=== PATIENT | female | born 1990 | race Caucasian/White ===

== ENCOUNTER 2017-01-29 13:48 | Emergency (ER) | payer MEDICAID, OTHER ==
[~2017-01-29] VITALS: Ht 175.3 cm; Wt 86.2 kg
[2017-01-29 13:52] VITALS: BP 105/73
--- NOTE | 2017-01-29 13:59 | NUR ---
Patient ambulated to bed 6. RN evaluating patient at bedside.
--- NOTE | 2017-01-29 14:00 | NUR ---
26 YO FEMALE BIB S.O. WITH C/O LEFT SIDED 8/10 "SHARP" LOWER BACK PAIN THAT "AT TIMES" RADIATES DOWN TO LT OR/AND RT LEG; PT DENIES ANY RECENT FALL OR INJURY; PT DENIES ANY NUMBNESS OR TINGLING; CMS AND SKIN INTACT; SKIN IS PINK/WARM/DRY; AOX4 WITH EVEN AND STEADY GAIT; RR ARE EVEN AND UNLABORED; VSS; PATIENT POSITIONED FOR COMFORT; HOB ELEVATED; ER MD MADE AWARE OF PT STATUS.
--- NOTE | 2017-01-29 14:15 | NUR ---
Dr. Mensah evaluating patient at bedside.
[2017-01-29] MEDS ORDERED: KETOROLAC 60 MG/2 ML VIAL IM ONE (14:25)
--- NOTE | 2017-01-29 14:41 | NUR ---
Patient taken to CT scan via wheelchair by tech. Accompanied by family.
[2017-01-29 15:00] LABS: APPEARANCE,URINE HAZY (CLEAR); BILIRUBIN,URINE NEGATIVE (NEGATIVE); BLOOD, URINE NEGATIVE (NEGATIVE); COLOR,URINE YELLOW (YELLOW); LEUKOCYTE ESTERASE ,URINE 2+ (NEGATIVE); NITRITE, URINE NEGATIVE (NEGATIVE); PH,URINE 6.5 (5.0-9.0); UGLUCOSE NEGATIVE (NEGATIVE)
[2017-01-29 15:07] LABS: RBC,URINE 0-5 (RARE) /HPF (0-5); WBC,URINE 20-60 /HPF (0-5)
[2017-01-29] MEDS ORDERED: HYDROmorphone PFS 2 MG/ML SYR IM ONE (15:35)
--- NOTE | 2017-01-29 15:45 | NUR ---
Dr. Mensah re-evaluating patient at bedside.
[2017-01-29 16:05] VITALS: BP 101/70
--- NOTE | 2017-01-29 16:05 | NUR ---
Patient discharged with v/s stable. Written and verbal after care instructions given and explained. Patient alert, oriented and verbalized understanding of instructions. Ambulatory with steady gait with . Patient stated her was going to drive her home. All questions addressed prior to discharge. ID band removed. Patient advised to follow up with PMD. Rx of Voltarn given. Patient educated on indication of medication including possible reaction and side effects. Opportunity to ask questions provided and answered.
== END 2017-01-29 16:05 | disposition home or self-care (01) ==
LOC: MED 13:48
DX: M54.5 Low back pain (principal)
CPT/HCPCS: 72131; 81001; 81025; 87086; 96372; 99285; J1170; J1885

== ENCOUNTER 2017-06-02 15:01 | Emergency (ER) | payer OTHER ==
[~2017-06-02] VITALS: Ht 175.3 cm; Wt 93.6 kg
[2017-06-02 15:20] VITALS: BP 117/78
--- NOTE | 2017-06-02 15:24 | NUR ---
PT AMBULATED TO BED 11.
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
[2017-06-02] MEDS ORDERED: ACETAMINOPHEN EXTRA STRENGTH 500 MG TAB PO ONE (15:30)
[2017-06-02 17:03] VITALS: BP 105/61
== END 2017-06-02 17:04 | disposition home or self-care (01) ==
LOC: MED 15:01
DX: O99.511 Diseases of the respiratory system complicating pregnancy, first trimester (principal); O23.41 Unspecified infection of urinary tract in pregnancy, first trimester; Z3A.09 9 weeks gestation of pregnancy
CPT/HCPCS: 36415; 87804; 99284

== ENCOUNTER 2017-12-23 00:24 | Inpatient (IN) | payer OTHER ==
[~2017-12-23] VITALS: Ht 175.3 cm; Wt 98.0 kg
[2017-12-23 00:37] VITALS: BP 113/68
[2017-12-23 01:02] LABS: HEMATOCRIT 33.7 % (36-48); HEMOGLOBIN 11.2 g/dL (12.0-16.0)
[2017-12-23 01:15] LABS: APPEARANCE,URINE SL CLOUDY (CLEAR); BILIRUBIN,URINE NEGATIVE (NEGATIVE); BLOOD, URINE NEGATIVE (NEGATIVE); COLOR,URINE YELLOW (YELLOW); LEUKOCYTE ESTERASE ,URINE 3+ (NEGATIVE); NITRITE, URINE NEGATIVE (NEGATIVE); PH,URINE 6.5 (5.0-9.0); UGLUCOSE NEGATIVE (NEGATIVE)
[2017-12-23 01:19] LABS: BASOPHILS % (AUTO) 0.5 % (0.0-2.0); EOSINOPHILS # (AUTO) 0.1 K/uL (0-0.4); EOSINOPHILS % (AUTO) 1.1 % (0.0-4.0); LYMPHOCYTES # (AUTO) 2.9 K/uL (2.5-16.5); LYMPHOCYTES % (AUTO) 30.1 % (20.5-51.1); MEAN CORPUSCULAR HEMOGLOBIN 27 pg (27-31); MEAN CORPUSCULAR HGB CONC 33 g/dL (33-37); MEAN CORPUSCULAR VOLUME 81.1 fL (80-94); MONOCYTES # (AUTO) 0.7 K/uL (0.8-1.0); MONOCYTES % (AUTO) 7.3 % (1.7-9.3); NEUTROPHILS # (AUTO) 5.8 K/uL (1.8-7.7); PLATELET COUNT (AUTO) 174 K/uL (140-450); RED BLOOD CELL COUNT(AUTO) 4.15 MIL/uL (4.20-5.40); WHITE BLOOD COUNT (AUTO) 9.6 K/uL (4.8-10.8)
[2017-12-23] MEDS ORDERED: NALBUPHINE 10 MG/ML AMP IVP PRN (01:40)
[2017-12-23] MEDS ORDERED: CARBOPROST 250 MCG/ML AMP IM PRN (01:40)
[2017-12-23] MEDS ORDERED: OXYTOCIN 20 UNITS in LACTATED RINGERS 1,000 ML IV SCH (01:40)
[2017-12-23] MEDS ORDERED: METHYLERGONOVINE 0.2 MG/ML AMP IM PRN (01:40)
[2017-12-23] MEDS ORDERED: AMPICILLIN 2,000 MG in NACL 0.9% 100 ML IV ONE (01:40)
[2017-12-23] MEDS ORDERED: OXYTOCIN 10 UNITS/ML VIAL IM PRN (01:40)
[2017-12-23] MEDS ORDERED: PROMETHAZINE 25 MG/ML VIAL IVP PRN (01:40)
[2017-12-23 01:51] LABS: RBC,URINE 0-5 (RARE) /HPF (0-5); WBC,URINE TOO MANY TO COUNT /HPF (0-5)
[2017-12-23] MEDS: LACTATED RINGERS 1,000 ML IV SCH ×4 (02:00→15:43)
[2017-12-23] MEDS ORDERED: AMPICILLIN 2,000 MG VIAL ONE (02:18)
[2017-12-23] MEDS ORDERED: FERR-252 PO (02:36)
[2017-12-23] MEDS ORDERED: PREN-546 PO (02:36)
[2017-12-23] MEDS ORDERED: AMPICILLIN 1,000 MG VIAL ONE ×3 (06:05→14:49)
[2017-12-23] MEDS: AMPICILLIN 1,000 MG in NACL 0.9% 50 ML IV SCH ×2 (06:20→14:53)
--- NOTE | 2017-12-23 09:00 | NUR ---
PATIENT HAS BEEN SCREENED AND CATEGORIZED LOW NUTRITION RISK. PATIENT WILL BE SEEN WITHIN 7 DAYS OF ADMISSION. 12/29/[address]
[2017-12-23] MEDS ORDERED: BUPIVACAINE 0.125%/NS PREMIX 250 ML ONE (14:18)
[2017-12-23] MEDS ORDERED: BUPIVACAINE 0.125%/NS PREMIX 250 ML EPI SCH (14:45)
[2017-12-23] MEDS ORDERED: OXYTOCIN 10 UNITS/ML VIAL ONE (19:04)
[2017-12-23] MEDS ORDERED: oxyCODONE/APAP 5/325 MG 1 TAB TAB PO PRN (23:15)
[2017-12-23] MEDS ORDERED: ACETAMINOPHEN 325 MG TAB PO PRN (23:15)
[2017-12-23] MEDS ORDERED: MEASLES, MUMPS, AND RUBELLA 1 VIAL SQVAC PRN (23:15)
[2017-12-23] MEDS ORDERED: BENZOCAINE/MENTHOL 20%-0.5% 60 GM CAN TP PRN (23:15)
[2017-12-23] MEDS ORDERED: BISACODYL 5 MG TABEC PO PRN (23:15)
[2017-12-24] MEDS: IBUPROFEN 600 MG TAB PO PRN ×3 (06:09→21:40)
[2017-12-24 08:23] LABS: BASOPHILS % (AUTO) 0.3 % (0.0-2.0); EOSINOPHILS # (AUTO) 0.1 K/uL (0-0.4); EOSINOPHILS % (AUTO) 0.6 % (0.0-4.0); HEMATOCRIT 30.7 % (36-48); HEMOGLOBIN 10.2 g/dL (12.0-16.0); LYMPHOCYTES # (AUTO) 2.3 K/uL (2.5-16.5); LYMPHOCYTES % (AUTO) 22.3 % (20.5-51.1); MEAN CORPUSCULAR HEMOGLOBIN 27 pg (27-31); MEAN CORPUSCULAR HGB CONC 33 g/dL (33-37); MEAN CORPUSCULAR VOLUME 81.2 fL (80-94); MONOCYTES # (AUTO) 0.8 K/uL (0.8-1.0); MONOCYTES % (AUTO) 7.6 % (1.7-9.3); NEUTROPHILS # (AUTO) 7.1 K/uL (1.8-7.7); NEUTROPHILS % (AUTO) 69.2 % (42.2-75.2); PLATELET COUNT (AUTO) 159 K/uL (140-450); RED BLOOD CELL COUNT(AUTO) 3.78 MIL/uL (4.20-5.40); RED CELL DISTRIBUTION WIDTH 17.5 % (11.6-13.7); WHITE BLOOD COUNT (AUTO) 10.3 K/uL (4.8-10.8)
[2017-12-24] MEDS: DOCUSATE SODIUM 100 MG GELCAP PO PRN (14:07)
[2017-12-25] MEDS: IBUPROFEN 600 MG TAB PO PRN ×2 (08:03→14:16)
[2017-12-25] MEDS: DOCUSATE SODIUM 100 MG GELCAP PO PRN (08:04)
== END 2017-12-25 15:15 | disposition home or self-care (01) | DRG 560 ==
LOC: MLD 00:24 → MFCC 22:55
PROVIDERS: ADMIT Obstetrics & Gynecology; ATTEND Obstetrics & Gynecology
PROC: 10E0XZZ Delivery of Products of Conception, External Approach (ICD-10-PCS; principal; 2017-12-23)
PROC: 3E0R3BZ Introduction of Anesthetic Agent into Spinal Canal, Percutaneous Approach (ICD-10-PCS; 2017-12-23)
PROC: 00HU33Z Insertion of Infusion Device into Spinal Canal, Percutaneous Approach (ICD-10-PCS; 2017-12-23)
DX: O62.2 Other uterine inertia (principal); Z37.0 Single live birth; Z82.49 Family history of ischemic heart disease and other diseases of the circulatory system; Z3A.39 39 weeks gestation of pregnancy
CPT/HCPCS: 36415; 76815; 81001; 85025; 86592; 86886; 86900; 86901; 87086; 87653-90; J0290; J2590; J3490; J7120; Q0092

== ENCOUNTER 2018-08-26 15:32 | Emergency (ER) | payer OTHER ==
[~2018-08-26] VITALS: Ht 175.3 cm; Wt 94.3 kg
[~2018-08-26 15:32] MED LIST: FERR-252 PO; PREN-546 PO
[2018-08-26 15:35] VITALS: BP 112/74
--- NOTE | 2018-08-26 15:43 | NUR ---
PATIENT AMBULATED TO BED 4 AT THIS TIME.
--- NOTE | 2018-08-26 15:57 | NUR ---
DR ROGER AT PT BEDSIDE
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
--- NOTE | 2018-08-26 16:14 | NUR ---
PT BEING TAKEN TO CT VIA WHEELCHAIR
[2018-08-26] MEDS ORDERED: MECLIZINE 25 MG TAB PO ONE (16:45)
[2018-08-26 17:03] VITALS: BP 118/75
--- NOTE | 2018-08-26 17:03 | NUR ---
Patient discharged with v/s stable. Written and verbal after care instructions given and explained. Patient alert, oriented and verbalized understanding of instructions. Ambulatory with steady gait. All questions addressed prior to discharge. ID band removed. Patient advised to follow up with PMD. Rx of MECLIZINE HYDROCHLORIDE given. Patient educated on indication of medication including possible reaction and side effects. Opportunity to ask questions provided and answered.
== END 2018-08-26 17:03 | disposition home or self-care (01) ==
LOC: MED 15:32
DX: R42 Dizziness and giddiness (principal); R51 Headache; R11.0 Nausea; Z79.899 Other long term (current) drug therapy
CPT/HCPCS: 70450; 81002; 81025; 99284; J8597

== ENCOUNTER 2018-11-02 13:29 | Emergency (ER) | payer OTHER ==
[~2018-11-02] VITALS: Ht 175.3 cm; Wt 87.5 kg
[2018-11-02 13:35] VITALS: BP 111/77
--- NOTE | 2018-11-02 13:42 | NUR ---
Patient ambulated to bed 2. RN evaluating patient at bedside.
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
--- NOTE | 2018-11-02 14:56 | NUR ---
US AT THE BEDSIDE.
[2018-11-02] MEDS ORDERED: KETOROLAC 30 MG/ML VIAL IM ONE (15:15)
[2018-11-02 17:20] VITALS: BP 111/77
== END 2018-11-02 17:20 | disposition home or self-care (01) ==
LOC: MED 13:29
DX: N83.202 Unspecified ovarian cyst, left side (principal); Z79.899 Other long term (current) drug therapy
CPT/HCPCS: 76856; 81002; 81025; 96372; 99284; J1885; Q0092

== ENCOUNTER 2020-12-09 14:10 | Emergency (ER) | payer OTHER ==
[~2020-12-09] VITALS: Ht 175.3 cm; Wt 93.9 kg
[2020-12-09 14:29] VITALS: BP 102/66
[2020-12-09 14:30] VITALS: BP 102/66
[2020-12-09] MEDS ORDERED: SODIUM CHLORIDE FLUSH 10 ML SYR IVF STA (14:42)
--- NOTE | 2020-12-09 14:44 | NUR ---
Patient to lobby for next available bed.
--- NOTE | 2020-12-09 14:45 | NUR ---
UA ambulated to restroom for urine sample. To lobby at this time.
[2020-12-09 19:31] LABS: BASOPHILS # (AUTO) 0.1 K/uL (0.00-0.22); BASOPHILS % (AUTO) 0.7 % (0.0-2.0); EOSINOPHILS # (AUTO) 0.2 K/uL (0-0.4); EOSINOPHILS % (AUTO) 1.9 % (0.0-4.0); HEMATOCRIT 34.7 % (36-48); HEMOGLOBIN 11.4 g/dL (12.0-16.0); LYMPHOCYTES # (AUTO) 3.3 K/uL (2.5-16.5); LYMPHOCYTES % (AUTO) 39.6 % (20.5-51.1); MEAN CORPUSCULAR HEMOGLOBIN 25 pg (27-31); MEAN CORPUSCULAR HGB CONC 33 g/dL (33-37); MEAN CORPUSCULAR VOLUME 75.4 fL (80-94); MONOCYTES # (AUTO) 0.3 K/uL (0.8-1.0); MONOCYTES % (AUTO) 3.3 % (1.7-9.3); NEUTROPHILS # (AUTO) 4.6 K/uL (1.8-7.7); NEUTROPHILS % (AUTO) 54.5 % (42.2-75.2); PLATELET COUNT (AUTO) 256 K/uL (140-450); RED CELL DISTRIBUTION WIDTH 15.7 % (11.6-13.7); WHITE BLOOD COUNT (AUTO) 8.4 K/uL (4.8-10.8)
[2020-12-09 19:45] LABS: ALBUMIN 4.1 g/dL (3.4-5.0); ANION GAP 13.6 (8-16); CARBON DIOXIDE 27.1 mmol/L (21-32); CREATININE 0.8 mg/dL (0.6-1.3); POTASSIUM 3.7 mmol/L (3.5-5.1); TOTAL BILIRUBIN 0.6 mg/dL (0.0-1.0)
[2020-12-09] MEDS ORDERED: OMEP20EC11 PO (20:19)
--- NOTE | 2020-12-09 20:30 | NUR ---
Patient discharged with v/s stable. Written and verbal after care instructions given and explained. Patient alert, oriented and verbalized understanding of instructions. Ambulatory with steady gait. All questions addressed prior to discharge. ID band removed. Patient advised to follow up with PMD. Rx of PRILOSEC given. Patient educated on indication of medication including possible reaction and side effects. Opportunity to ask questions provided and answered.
== END 2020-12-09 20:30 | disposition home or self-care (01) ==
LOC: MED 14:10
DX: R10.10 Upper abdominal pain, unspecified (principal); R11.0 Nausea; Z90.49 Acquired absence of other specified parts of digestive tract
CPT/HCPCS: 36415; 80053; 81002; 81025; 83690; 85025; 99283

== ENCOUNTER 2021-06-15 22:32 | Emergency (ER) | payer OTHER ==
[~2021-06-15] VITALS: Ht 175.3 cm; Wt 88.5 kg
[~2021-06-15 22:32] MED LIST changes: +OMEP20EC11 PO
[2021-06-15 23:04] VITALS: BP 109/65
[2021-06-16 01:10] VITALS: BP 108/76
--- NOTE | 2021-06-16 01:10 | NUR ---
Patient discharged with v/s stable. Written and verbal after care instructions given and explained. Patient verbalized understanding. Ambulatory with steady gait. All questions addressed prior to discharge. Advised to follow up with PMD.
== END 2021-06-16 01:10 | disposition home or self-care (01) ==
LOC: MED 22:32
DX: S60.222A Contusion of left hand, initial encounter (principal); Z79.899 Other long term (current) drug therapy; W19.XXXA Unspecified fall, initial encounter; Y93.89 Activity, other specified; Y92.89 Other specified places as the place of occurrence of the external cause; Y99.8 Other external cause status
CPT/HCPCS: 73130; 99283